=== PATIENT | female | born 1975 | race Caucasian/White ===

== ENCOUNTER 2019-12-31 07:59 | Emergency (ER) | payer MEDICAID ==
[~2019-12-31] VITALS: Ht 160 cm; Wt 76.8 kg
[~2019-12-31 07:59] MED LIST: CIPR2.5D18 RIGHTEYE; CLIN-90 PO; CYCL-1 PO; HYDR-4383 PO
[2019-12-31] MEDS ORDERED: pantoprazole 40 MG vial IV ONE (08:45)
[2019-12-31] MEDS ORDERED: ondansetron/PF 4mg/2ml inj IV ONE (08:45)
[2019-12-31 08:46] LABS: URINE HCG NEGATIVE (NEG)
[2019-12-31 08:49] LABS: CLARITY,URINE CLOUDY (Clear); COLOR,URINE YELLOW (Yellow); GLUCOSE, URINE NEGATIVE (Neg); KETONES,URINE NEGATIVE (Neg); LEUKOCYTE ESTERASE ,URINE MODERATE (Neg); NITRITES, URINE NEGATIVE (Neg); OCCULT BLOOD,URINE NEGATIVE (Neg); PH,URINE 6.5 (4.8-8.0); PROTEIN,URINE NEGATIVE (Neg); UROBILINOGEN,URINE 0.2 E.U/dL (0.2-1.0)
[2019-12-31 08:52] LABS: ALANINE AMINOTRANSFERASE 67 U/L (12-78); ALBUMIN 3.9 G/DL (3.4-5.0); ALBUMIN/GLOBULIN RATIO 1.1 (1.1-1.5); ALKALINE PHOSPHATASE 111 IU/L (46-116); ANION GAP 7 (8-16); ASPARTATE AMINO TRANSFERASE 60 U/L (10-37); BILIRUBIN,TOTAL 0.2 MG/DL (0.1-1.0); BLOOD UREA NITROGEN 7 MG/DL (7-18); BUN/CREATININE RATIO 13.7 (6.6-38.0); CALCIUM 9.1 MG/DL (8.5-10.1); CHLORIDE 103 MMOL/L (99-107); CREATININE 0.51 MG/DL (0.40-0.90); GLUCOSE 92 MG/DL (70-104); LIPASE 126 U/L (73-393); SODIUM 140 MMOL/L (135-145); TOTAL CARBON DIOXIDE 29.6 MMOL/L (24-32); TOTAL PROTEIN 7.6 G/DL (6.4-8.2); eGFR > 90 ML/MIN
[2019-12-31 08:53] LABS: POTASSIUM 3.8 MMOL/L (3.5-5.1)
[2019-12-31 08:54] LABS: UA COLLECTION TYPE CLN CATCH MIDSTREAM
[2019-12-31 08:55] LABS: MUCUS STRANDS MODERATE /LPF (Neg); SQUAMOUS EPITHELIAL CELL,UR MANY /LPF (FEW)
[2019-12-31 08:56] LABS: BACTERIA,URINE 2+ /HPF (Neg); RBC,URINE 0-2 /HPF (0-2); WBC,URINE 0-4 /HPF (0-4)
--- NOTE | 2019-12-31 09:07 | NUR ---
PT STILL REFUSING PAIN MEDS. VSS.
[2019-12-31 10:02] LABS: BASOPHILS # (AUTO) 0.1 X10'3 (0-0.2); BASOPHILS % (AUTO) 1.1 % (0-1); EOSINOPHILS # (AUTO) 0.4 X10'3 (0-0.9); EOSINOPHILS % (AUTO) 4.4 % (0-6); HEMATOCRIT 40.2 % (35.0-45.0); LYMPHOCYTES # (AUTO) 1.8 X10'3 (1.1-4.8); MEAN CORPUSCULAR HGB CONC 34.8 g/dL (33.0-36.5); MEAN CORPUSCULAR VOLUME 94.7 FL (78-98); MEAN PLATELET VOLUME 8.3 FL (7.4-10.4); MONOCYTES # (AUTO) 0.7 X10'3 (0-0.9); MONOCYTES % (AUTO) 7.5 % (2-12); NEUTROPHILS # (AUTO) 5.9 X10'3 (1.8-7.7); PLATELET COUNT 172 X10'3 (140-440); RED BLOOD COUNT 4.25 X10'6 (4.20-5.60); RED CELL DISTRIBUTION WIDTH 12.8 % (11.5-14.5); WHITE BLOOD COUNT 8.8 X10'3 (4.5-11.0)
[2019-12-31] MEDS ORDERED: ONDA4TAB6 PO (10:58)
[2019-12-31] MEDS ORDERED: PANT-47 PO (10:58)
[2019-12-31 11:16] VITALS: BP 125/74
== END 2019-12-31 11:19 | disposition home or self-care (01) ==
LOC: ER 08:00
DX: R16.0 Hepatomegaly, not elsewhere classified (principal); Z90.49 Acquired absence of other specified parts of digestive tract; Z79.899 Other long term (current) drug therapy; Z88.5 Allergy status to narcotic agent
CPT/HCPCS: 36415; 74176; 80053; 81001; 81025; 83690; 85025; 96374; 96375; 99284; C9113; J2405

== ENCOUNTER 2024-07-08 05:32 | Emergency (ER) | payer MEDICAID ==
[~2024-07-08] VITALS: Ht 160 cm; Wt 54.5 kg
[~2024-07-08 05:32] MED LIST changes: +CIPR2.5D12 RIGHTEYE; -CIPR2.5D18 RIGHTEYE; -CLIN-90 PO; +CLIN-97 PO; +ONDA4TAB6 PO; +PANT-47 PO
[2024-07-08 05:36] VITALS: TEMP 98.4
[2024-07-08] MEDS ORDERED: FEZO45TA PO (07:43)
[2024-07-08] MEDS ORDERED: HYDR-3927 PO (07:43)
[2024-07-08] MEDS ORDERED: MAGN400T56 PO (07:43)
[2024-07-08] MEDS ORDERED: BUPR-564 (07:43)
[2024-07-08] MEDS ORDERED: IBUP-1985 PO (07:43)
[2024-07-08] MEDS ORDERED: POTA-207 PO (07:43)
[2024-07-08] MEDS ORDERED: INDLA60C PO (07:43)
[2024-07-08] MEDS: LORazepam 2 mg/ml vial IV ONE (08:24)
[2024-07-08] MEDS: LORazepam 1 MG tablet PO ONE (08:28)
[2024-07-08 08:58] LABS: URINE HCG NEGATIVE (NEG)
[2024-07-08 09:32] LABS: URINE AMPHETAMINE SCREEN NEGATIVE (Neg); URINE BARBITUATE SCREEN NEGATIVE (Neg); URINE BENZODIAZEPINES SCREEN NEGATIVE (Neg); URINE CANNABINOID SCREEN NEGATIVE (Neg); URINE COCAINE SCREEN NEGATIVE (Neg); URINE METHADONE SCREEN NEGATIVE (Neg); URINE OPIATE SCREEN NEGATIVE (Neg); URINE PHENCYCLIDINE SCREEN NEGATIVE (Neg)
[2024-07-08 09:40] LABS: BASOPHILS # (AUTO) 0.1 X10'3 (0-0.2); BASOPHILS % (AUTO) 0.8 % (0-1); EOSINOPHILS # (AUTO) 0.2 X10'3 (0-0.9); HEMATOCRIT 40.4 % (35.0-45.0); HEMOGLOBIN 13.8 g/dl (12.0-16.0); LYMPHOCYTES # (AUTO) 1.7 X10'3 (1.1-4.8); LYMPHOCYTES % (AUTO) 18.7 % (21-51); MEAN CORPUSCULAR HEMOGLOBIN 34.3 PG (27.0-31.0); MEAN CORPUSCULAR HGB CONC 34.2 g/dL (33.0-36.5); MEAN CORPUSCULAR VOLUME 100.2 FL (78-98); MEAN PLATELET VOLUME 8.7 FL (7.4-10.4); MONOCYTES # (AUTO) 0.6 X10'3 (0-0.9); MONOCYTES % (AUTO) 6.5 % (2-12); NEUTROPHILS # (AUTO) 6.4 X10'3 (1.8-7.7); PLATELET COUNT 240 X10'3 (140-440); RED BLOOD COUNT 4.03 X10'6 (4.20-5.60); RED CELL DISTRIBUTION WIDTH 13.9 % (11.5-14.5); WHITE BLOOD COUNT 8.9 X10'3 (4.5-11.0)
[2024-07-08 09:42] LABS: BILIRUBIN,URINE SMALL (Neg); CLARITY,URINE CLOUDY (Clear); COLOR,URINE YELLOW (Yellow); GLUCOSE, URINE NEGATIVE (Neg); KETONES,URINE NEGATIVE (Neg); LEUKOCYTE ESTERASE ,URINE TRACE (Neg); NITRITES, URINE NEGATIVE (Neg); OCCULT BLOOD,URINE NEGATIVE (Neg); PH,URINE 7.5 (4.8-8.0); PROTEIN,URINE NEGATIVE (Neg)
[2024-07-08 09:51] LABS: ALBUMIN 3.5 G/DL (3.4-5.0); ANION GAP 10 (8-16); BLOOD UREA NITROGEN 4 MG/DL (7-18); BUN/CREATININE RATIO 5.8 (10.0-20.0); CALCIUM 8.9 MG/DL (8.5-10.1); CHLORIDE 97 MMOL/L (99-107); CREATININE 0.69 MG/DL (0.40-0.90); GLUCOSE 108 MG/DL (70-104); SODIUM 141 MMOL/L (135-145); TOTAL CARBON DIOXIDE 34.1 MMOL/L (24-32); eCRCL 81 ML/MIN; eGFR 90 ML/MIN
[2024-07-08 10:03] LABS: UA COLLECTION TYPE CLN CATCH MIDSTREAM
[2024-07-08 10:04] LABS: POTASSIUM 2.5 MMOL/L (3.5-5.1)
[2024-07-08 10:04] LABS: BACTERIA,URINE 4+ /HPF (Neg); SQUAMOUS EPITHELIAL CELL,UR MODERATE /LPF (FEW)
[2024-07-08 10:05] LABS: RBC,URINE 0-2 /HPF (0-2)
[2024-07-08 10:14] LABS: ETHANOL < 10 MG/DL (<10)
[2024-07-08 10:24] VITALS: BP 116/77; PULSE 91; RESP 14; O2SAT 98
== END 2024-07-08 10:30 | disposition home or self-care (01) ==
LOC: ER 05:34
DX: T50.901A Poisoning by unspecified drugs, medicaments and biological substances, accidental (unintentional), initial encounter (principal); F41.9 Anxiety disorder, unspecified; Z88.5 Allergy status to narcotic agent; Z88.8 Allergy status to other drugs, medicaments and biological substances; Z79.1 Long term (current) use of non-steroidal anti-inflammatories (NSAID); Z90.49 Acquired absence of other specified parts of digestive tract; Y92.89 Other specified places as the place of occurrence of the external cause
CPT/HCPCS: 36415; 80048; 80305; 80320; 81001; 81025; 85025; 87077; 87088; 87186; 99283

== ENCOUNTER 2024-08-07 17:40 | Inpatient (IN) | payer MEDICAID ==
[~2024-08-07] VITALS: Ht 157.5 cm; Wt 56.8 kg
[~2024-08-07 17:40] MED LIST changes: +BUPR-564 PO; -CIPR2.5D12 RIGHTEYE; -CLIN-97 PO; -CYCL-1 PO; +FEZO45TA PO; +HYDR-3927 PO; -HYDR-4383 PO; +IBUP-1985 PO; +INDLA60C PO; +MAGN400T56 PO; -ONDA4TAB6 PO; -PANT-47 PO; +POTA-207 PO
[2024-08-07] MEDS: acetaminophen 325mg tablet PO ONE (21:26)
[2024-08-07] MEDS: normal saline 500ml IV soln 500 ML IV ONE (21:28)
[2024-08-07 21:35] LABS: BASOPHILS # (AUTO) 0.1 X10'3 (0-0.2); BASOPHILS % (AUTO) 0.9 % (0-1); EOSINOPHILS # (AUTO) 0.1 X10'3 (0-0.9); EOSINOPHILS % (AUTO) 1.7 % (0-6); HEMATOCRIT 35.8 % (35.0-45.0); LYMPHOCYTES % (AUTO) 24.8 % (21-51); MEAN CORPUSCULAR HEMOGLOBIN 30.4 PG (27.0-31.0); MEAN CORPUSCULAR HGB CONC 33.5 g/dL (33.0-36.5); MEAN CORPUSCULAR VOLUME 90.8 FL (78-98); MEAN PLATELET VOLUME 7.7 FL (7.4-10.4); MONOCYTES # (AUTO) 0.6 X10'3 (0-0.9); MONOCYTES % (AUTO) 7.6 % (2-12); NEUTROPHILS # (AUTO) 5.4 X10'3 (1.8-7.7); PLATELET COUNT 229 X10'3 (140-440); RED BLOOD COUNT 3.94 X10'6 (4.20-5.60); RED CELL DISTRIBUTION WIDTH 18.3 % (11.5-14.5); WHITE BLOOD COUNT 8.2 X10'3 (4.5-11.0)
[2024-08-07 21:47] LABS: ANION GAP 11 (8-16); BLOOD UREA NITROGEN 5 MG/DL (7-18); BUN/CREATININE RATIO 6.8 (10.0-20.0); CHLORIDE 101 MMOL/L (99-107); CREATININE 0.73 MG/DL (0.40-0.90); GLUCOSE 133 MG/DL (70-104); SODIUM 141 MMOL/L (135-145); TOTAL CARBON DIOXIDE 29.1 MMOL/L (24-32)
[2024-08-07 21:48] LABS: ALANINE AMINOTRANSFERASE 32 U/L (12-78); ALBUMIN 3.5 G/DL (3.4-5.0); ALBUMIN/GLOBULIN RATIO 1.2 (1.1-1.5); ALKALINE PHOSPHATASE 133 IU/L (46-116); ASPARTATE AMINO TRANSFERASE 69 U/L (10-37); BILIRUBIN,TOTAL 0.7 MG/DL (0.1-1.0); CALCIUM 8.6 MG/DL (8.5-10.1); TOTAL PROTEIN 6.5 G/DL (6.4-8.2); eCRCL 73 ML/MIN; eGFR 84 ML/MIN
[2024-08-07 21:57] LABS: POTASSIUM 2.5 MMOL/L (3.5-5.1)
[2024-08-07 22:00] LABS: ANISOCYTOSIS 2+; PLATELET ESTIMATE NORMAL
[2024-08-07] MEDS ORDERED: POTASSIUM BICARB 20meq eff tab 20 MEQ TABLET.EFF PO SCH (22:05)
[2024-08-07 22:06] LABS: STOMATOCYTES FEW; TARGET CELLS FEW
[2024-08-07] MEDS ORDERED: PROP10TA10 PO (22:20)
[2024-08-07] MEDS ORDERED: ASPI-1265 PO (22:21)
[2024-08-07] MEDS ORDERED: MULT-1085 PO (22:21)
[2024-08-07] MEDS: magnesium sulf-water 2g/50mL 50 ML IV ONE (22:27)
[2024-08-07] MEDS: POTASSIUM BICARB 20meq eff tab 20 MEQ TABLET.EFF PO ONE (22:46)
[2024-08-07] MEDS: LORazepam 2 mg/ml vial IV ONE (23:42)
[2024-08-08] VITALS (7 sets, daily range): BP systolic 116–145; BP diastolic 57–91; PULSE 66–94; RESP 14–16; TEMP 97.6–98.8; O2SAT 92–100
[2024-08-08] MEDS ORDERED: ondansetron/PF 4mg/2ml inj IV PRN (00:30)
[2024-08-08] MEDS ORDERED: potassium Cl 40MEQ/1/2NS 520ml 520 ML IV PRN (00:30)
[2024-08-08] MEDS ORDERED: magnesium hydroxide 30ml (MOM) UD suspension PO PRN (00:30)
[2024-08-08] MEDS ORDERED: magnesium sulf-water 4G/100mL 100 ML IV PRN (00:30)
[2024-08-08] MEDS ORDERED: mag hydrox/Alum hydrox/simeth 30ml oral suspension PO PRN (00:30)
[2024-08-08] MEDS ORDERED: magnesium sulf-water 2g/50mL 50 ML IV PRN (00:30)
[2024-08-08] MEDS ORDERED: potassium Cl 20 mEq SR tablet PO PRN (00:30)
[2024-08-08] MEDS ORDERED: acetaminophen 325mg tablet PO PRN (00:30)
[2024-08-08 01:31] LABS: OSMOLALITY UA 306 MOSM/K (50-1400)
[2024-08-08 02:33] LABS: ABG BASE EXCESS 6.9 mmol/L (-2.0-3.0); ABG HCO3 30.6 mmol/L (21.0-28.0); ABG PCO2 (T) 40.6 mmHg (32.0-45.0); ABG PH (T) 7.497 (7.350-7.450); ABG PO2 (T) 80.8 mmHg (83.0-108.0); ALLEN'S TEST POSITIVE; FCOHb 0.2 % (0.5-1.5); FO2Hb 95.8 % (94.0-98.0); MODE ROOM AIR; PATIENT TEMPERATURE 37.2
[2024-08-08 04:06] LABS: MAGNESIUM 1.5 MG/DL (1.5-2.4)
[2024-08-08 04:26] LABS: POTASSIUM 2.8 MMOL/L (3.5-5.1)
[2024-08-08] MEDS: potassium Cl 20 mEq SR tablet PO PRN (04:47)
[2024-08-08 04:53] LABS: CHLORIDE,URINE RANDOM < 50 MEQ/L
[2024-08-08] MEDS ORDERED: BUPROPION HCL 300 MG PO SCH (08:00)
[2024-08-08] MEDS: K and/or MAG REPLACEMENT MC SCH (08:00)
[2024-08-08] MEDS ORDERED: HYDROXYZINE PAMOATE 25 MG PO SCH (08:00)
[2024-08-08] MEDS: FEZOLINETANT 45 MG PO SCH (08:00)
[2024-08-08] MEDS: potassium Cl 20 mEq SR tablet PO STA ×2 (08:51→14:31)
[2024-08-08] MEDS: aspirin 81mg tab.chew PO SCH (08:52)
[2024-08-08] MEDS: ringers solution, lacted 1,000 ML IV SCH (08:54)
[2024-08-08] MEDS ORDERED: BUPROPION HCL 150MG XL 24 HR 150 MG TAB PO SCH (09:07)
[2024-08-08] MEDS ORDERED: hydrOXYzine 25 MG tablet PO SCH (09:09)
[2024-08-08] MEDS: hydrOXYzine 25 MG tablet PO SCH (09:19)
[2024-08-08] MEDS: BUPROPION HCL 150MG XL 24 HR 150 MG TAB PO SCH (09:19)
[2024-08-08 11:28] LABS: ALBUMIN 2.9 G/DL (3.4-5.0); ANION GAP 7 (8-16); BLOOD UREA NITROGEN 4 MG/DL (7-18); BUN/CREATININE RATIO 6.3 (10.0-20.0); CALCIUM 8.5 MG/DL (8.5-10.1); CHLORIDE 105 MMOL/L (99-107); CREATININE 0.64 MG/DL (0.40-0.90); GLUCOSE 97 MG/DL (70-104); POTASSIUM 3.4 MMOL/L (3.5-5.1); SODIUM 145 MMOL/L (135-145); TOTAL CARBON DIOXIDE 33.3 MMOL/L (24-32); eCRCL 83 ML/MIN; eGFR > 90 ML/MIN
[2024-08-08 11:32] LABS: ETHANOL < 10 MG/DL (<10)
[2024-08-08] MEDS: ibuprofen tablet 400 MG TABLET PO SCH (11:36)
[2024-08-08 15:07] LABS: URINE AMPHETAMINE SCREEN NEGATIVE (Neg); URINE BARBITUATE SCREEN NEGATIVE (Neg); URINE BENZODIAZEPINES SCREEN NEGATIVE (Neg); URINE CANNABINOID SCREEN NEGATIVE (Neg); URINE COCAINE SCREEN NEGATIVE (Neg); URINE METHADONE SCREEN NEGATIVE (Neg); URINE OPIATE SCREEN NEGATIVE (Neg); URINE PHENCYCLIDINE SCREEN NEGATIVE (Neg)
[2024-08-08 18:58] LABS: BILIRUBIN,URINE NEGATIVE (Neg); CLARITY,URINE SLIGHTLY CLOUDY (Clear); COLOR,URINE YELLOW (Yellow); GLUCOSE, URINE NEGATIVE (Neg); KETONES,URINE NEGATIVE (Neg); LEUKOCYTE ESTERASE ,URINE NEGATIVE (Neg); NITRITES, URINE NEGATIVE (Neg); OCCULT BLOOD,URINE NEGATIVE (Neg); PROTEIN,URINE NEGATIVE (Neg); UROBILINOGEN,URINE 0.2 E.U/dL (0.2-1.0)
[2024-08-08 19:04] LABS: UA COLLECTION TYPE NON-SPECIFIED
[2024-08-08 19:05] LABS: AMORPHOUS PHOSPHATES 3+; BACTERIA,URINE FEW /HPF (Neg); RBC,URINE 0-2 /HPF (0-2); SQUAMOUS EPITHELIAL CELL,UR FEW /LPF (FEW); WBC,URINE 0-4 /HPF (0-4)
[2024-08-08] MEDS: enoxaparin 40mg/0.4ml syringe SQ SCH (20:00)
[2024-08-08] MEDS: ibuprofen tablet 400 MG TABLET PO ONE (22:00)
[2024-08-09] MEDS: ketorolac trometh 15mg/ml vial 15 MG/ML ML IV ONE (02:21)
[2024-08-09 06:00] VITALS: BP 113/67; PULSE 81; RESP 13; TEMP 97.6; O2SAT 97
[2024-08-09 07:16] LABS: BASOPHILS % (AUTO) 0.8 % (0-1); EOSINOPHILS # (AUTO) 0.1 X10'3 (0-0.9); EOSINOPHILS % (AUTO) 2.6 % (0-6); HEMATOCRIT 31.5 % (35.0-45.0); HEMOGLOBIN 10.3 g/dl (12.0-16.0); LYMPHOCYTES # (AUTO) 1.9 X10'3 (1.1-4.8); LYMPHOCYTES % (AUTO) 37.8 % (21-51); MEAN CORPUSCULAR HEMOGLOBIN 30.5 PG (27.0-31.0); MEAN CORPUSCULAR HGB CONC 32.7 g/dL (33.0-36.5); MEAN CORPUSCULAR VOLUME 93.4 FL (78-98); MEAN PLATELET VOLUME 8.5 FL (7.4-10.4); MONOCYTES # (AUTO) 0.4 X10'3 (0-0.9); MONOCYTES % (AUTO) 7.4 % (2-12); NEUTROPHILS # (AUTO) 2.6 X10'3 (1.8-7.7); NEUTROPHILS % (AUTO) 51.4 % (42-75); PLATELET COUNT 171 X10'3 (140-440); RED BLOOD COUNT 3.38 X10'6 (4.20-5.60); RED CELL DISTRIBUTION WIDTH 17.8 % (11.5-14.5); WHITE BLOOD COUNT 5.1 X10'3 (4.5-11.0)
[2024-08-09 07:27] LABS: ALANINE AMINOTRANSFERASE 27 U/L (12-78); ALBUMIN 2.9 G/DL (3.4-5.0); ALBUMIN/GLOBULIN RATIO 1.1 (1.1-1.5); ALKALINE PHOSPHATASE 104 IU/L (46-116); ANION GAP 5 (8-16); ASPARTATE AMINO TRANSFERASE 55 U/L (10-37); BILIRUBIN,TOTAL 0.8 MG/DL (0.1-1.0); BLOOD UREA NITROGEN 3 MG/DL (7-18); BUN/CREATININE RATIO 4.8 (10.0-20.0); CALCIUM 8.5 MG/DL (8.5-10.1); CHLORIDE 107 MMOL/L (99-107); CREATININE 0.63 MG/DL (0.40-0.90); GLUCOSE 81 MG/DL (70-104); MAGNESIUM 1.4 MG/DL (1.5-2.4); SODIUM 142 MMOL/L (135-145); TOTAL CARBON DIOXIDE 29.8 MMOL/L (24-32); TOTAL PROTEIN 5.6 G/DL (6.4-8.2); eCRCL 84 ML/MIN; eGFR > 90 ML/MIN
[2024-08-09 08:00] VITALS: RESP 13; O2SAT 95
[2024-08-09] MEDS: potassium Cl 20 mEq SR tablet PO SCH (09:07)
[2024-08-09] MEDS: magnesium Cl slow-release 64mg tablet PO PRN (09:14)
[2024-08-09 10:00] VITALS: BP 125/80; PULSE 77; RESP 15; TEMP 97.9; O2SAT 99
[2024-08-09] MEDS: LORazepam 2 mg/ml vial IV ONE (13:11)
[2024-08-09 18:00] VITALS: BP 127/80; PULSE 76; RESP 14; TEMP 98; O2SAT 97
[2024-08-09] MEDS ORDERED: GADOTERATE MEGLUMINE 7.5 MMOL/15 ML VIAL IV ONE (18:01)
== END 2024-08-09 20:35 | disposition left against medical advice (07) | DRG 98 ==
LOC: ER 17:40 → EEVIPCON 08-08 00:36 → ED HOLD 08-08 00:36 → ORTHO 4S 08-08 09:18 → OBSVTOIN 08-08 18:48 → ORTHO 4S 08-09 19:30
PROVIDERS: ADMIT Surgery Surgical Critical Care; ATTEND Nurse Practitioner Family
PROC: 09BB0ZZ Excision of Right Mastoid Sinus, Open Approach (ICD-10-PCS; principal; 2024-08-07)
PROC: 09C00ZZ Extirpation of Matter from Right External Ear, Open Approach (ICD-10-PCS; 2024-08-07)
PROC: 4A00X4Z Measurement of Central Nervous Electrical Activity, External Approach (ICD-10-PCS; 2024-08-09)
DX: S09.8XXA Other specified injuries of head, initial encounter (principal); E86.0 Dehydration; S06.0X0A Concussion without loss of consciousness, initial encounter; S01.82XA Laceration with foreign body of other part of head, initial encounter; E87.6 Hypokalemia; F40.00 Agoraphobia, unspecified; Z53.21 Procedure and treatment not carried out due to patient leaving prior to being seen by health care provider; F41.9 Anxiety disorder, unspecified; X58.XXXA Exposure to other specified factors, initial encounter; Y93.89 Activity, other specified; Y92.89 Other specified places as the place of occurrence of the external cause; Y99.8 Other external cause status; Z88.5 Allergy status to narcotic agent
CPT/HCPCS: 36415; 36600; 70450; 70553; 72125; 80048; 80053; 80305; 80320; 81001; 82436; 82570; 82803; 83735; 83930; 83935; 84132; 84133; 85008; 85018; 85025; 87081; 93005; 93880; 95816; 96365; 96375; 99285; A6258; A6402; A9575; G0378; J1885; J2060; J7030; J7040; J7120; L0172; Q0177